=== PATIENT | male | born 1980 | race Caucasian/White ===

== ENCOUNTER 2020-06-10 14:09 | Outpatient (CLI) | payer BC, SELFPAY ==
--- NOTE | 2020-06-10 14:20 | MR_ITS ---
WS: [id number] MRI HEAD WITH CONTRAST WITH ATTENTION TO THE PITUITARY TECHNIQUE: Sagittal T1, T2 axial, T2 axial FLAIR, axial susceptibility weighted imaging, axial diffus ion weighted images, and coronal T2 images were obtained. Pre and post-T1 axial and post T1 coronal i mages. ADC and FSPGR images. High-resolution imaging of the pituitary was obtained. Multiplanar T1-T2 and postgadolinium imaging was obtained. CLINICAL INFORMATION: HYPERPROLACTINEMIA COMPARISON: MRA [id number] FINDINGS: No evidence of restricted diffusion to suggest acute ischemia. Ventricular system and basal cisterns are patent. No suspicious intracranial signal abnormalities. Normal posterior fossa. Normal vascular flow voids at the skull base. No extra axial fluid collections. No evidence of mass or mass effect. M ild mucosal thickening in the ethmoid air cells. Mild mucosal thickening at the mastoid tips. Normal optic chiasm and pituitary infundibulum. Asymmetric hypoenhancing pituitary tissue in the righ t aspect of the sella measuring 8.6 x 7.4 x 5.3 mm. Findings are most consistent with microadenoma. R ecommend correlation with pituitary function studies. Normal-appearing pituitary tissue in the left a spect of the sella.No hemosiderin on the susceptibly weighted images. Normal cavernous sinus and Meck el's cave. MR/MR pituitary wo/w con* [id number] IMPRESSION: 1. Hypoenhancing lesion right aspect of the sella described above most consist ent with microadenoma. Recommend correlation with pituitary function studies. 2. Normal optic chiasm and pituitary infundibulum. 3. No other significant findings.
== END 2020-06-10 14:10 | disposition home or self-care (01) ==
PROVIDERS: PCP Family Medicine
DX: E34.9 Endocrine disorder, unspecified (principal)
CPT/HCPCS: 70553; A9577

== ENCOUNTER → 2022-08-24 14:41 | Outpatient (BNVA) | payer OTHER, SELFPAY | PROVIDERS: PCP Family Medicine; Visit Provider Family Medicine | DX: E34.9 Endocrine disorder, unspecified (principal) | CPT/HCPCS: 80053; 80061; 82533; 82784; 83036; 83516; 84305; 84402; 84403; 84439; 84443; 86376 ==

== ENCOUNTER → 2022-10-28 07:32 | Outpatient (BNVA) | payer OTHER, SELFPAY | PROVIDERS: PCP Family Medicine; Visit Provider Internal Medicine | DX: E34.9 Endocrine disorder, unspecified (principal); D35.2 Benign neoplasm of pituitary gland; E11.9 Type 2 diabetes mellitus without complications | CPT/HCPCS: 36415; 80061; 84403; 84439; 85025; G0103 ==

== ENCOUNTER 2022-11-07 16:43 | Outpatient (CLI) | payer OTHER, SELFPAY ==
[2022-11-07 18:32] LABS: Prolactin 1.19 ng/mL (4.0-15.2)
== END 2022-11-07 16:44 | disposition home or self-care (01) ==
PROVIDERS: PCP Family Medicine; Visit Provider Internal Medicine
DX: D35.2 Benign neoplasm of pituitary gland (principal); E11.9 Type 2 diabetes mellitus without complications; E34.9 Endocrine disorder, unspecified
CPT/HCPCS: 36415; 84146

== ENCOUNTER 2022-11-23 15:15 | Outpatient (CLI) | payer OTHER, SELFPAY ==
--- NOTE | 2022-11-23 16:00 | MR_ITS ---
WS: [id number] MRI HEAD WITHOUT AND WITH CONTRAST WITH ATTENTION TO THE PITUITARY TECHNIQUE: Sagittal T1, T2 axial, T2 axial FLAIR, axial susceptibility weighted imaging, axial diffus ion weighted images, and coronal T2 images were obtained. Pre and post-T1 axial and post T1 coronal i mages. ADC and FSPGR images. High-resolution imaging of the pituitary was obtained. Multiplanar T1, T 2 and postgadolinium imaging was obtained. CLINICAL INFORMATION: HYPERPROLACTINEMIA COMPARISON: MRI June 10, 2020 FINDINGS: Significant improvement with near resolution of the previously described microadenoma in RIGHT aspect of the sella. This is decreased in size today with a small area of residual hypoenhancement somewhat difficult to measure. This is somewhat ill-defined but measures approximately 4 mm.Normal optic jamie sm and pituitary infundibulum. No hemosiderin on the susceptibly weighted images. Normal cavernous sinus and Meckel's cave. No other significant changes compared to previous. No restricted diffusion to suggest acute ischemia. Ventricular system and basal cisterns are patent. No suspicious intracranial signal abnormalities. Normal posterior fossa. Normal vascular flow voids a t the skull base. No extra-axial fluid collections. No evidence of mass or mass effect. Paranasal sin uses and mastoid air cells well aerated. Normal posterior nasopharynx. No hemosiderin on susceptibly weighted images. MR/MR pituitary wo/w con* [id number] IMPRESSION: 1. Significant improvement with near resolution of the previously described mi croadenoma in RIGHT aspect of the sella. This is decreased in size today measur ing approximately 4 mm. 2. Normal optic chiasm and pituitary infundibulum. 3. No other significant interval changes.
[2022-11-23] MEDS: gadobenate dimeglumine 20 mL vial IV (16:33)
== END 2022-11-23 15:16 | disposition home or self-care (01) ==
LOC: RAD 15:17
PROVIDERS: PCP Family Medicine; Visit Provider Internal Medicine
DX: D35.2 Benign neoplasm of pituitary gland (principal)
CPT/HCPCS: 36415; 70553; 80061; 84403; 84439; 85025; A9577; G0103

== ENCOUNTER → 2023-03-07 09:17 | Outpatient (BNVA) | payer OTHER, SELFPAY | PROVIDERS: PCP Family Medicine; Visit Provider Internal Medicine | DX: E11.9 Type 2 diabetes mellitus without complications (principal); E34.9 Endocrine disorder, unspecified; R73.03 Prediabetes; Z79.899 Other long term (current) drug therapy | CPT/HCPCS: 80053; 80061; 82043; 83036; 84146; 84153; 84403; 85025 ==

== ENCOUNTER 2023-05-26 08:50 | Outpatient (CLI) | payer OTHER, SELFPAY ==
[2023-05-26 09:08] LABS: Basophils % 0.5 %; Eosinophils # 0.1 10^3/uL (0.0-0.8); Eosinophils % 2.2 %; Hematocrit 48.8 % (37-53); Lymphocytes # 1.7 10^3/uL (0.8-4.8); Mean Corpuscular HGB Conc 34.8 g/dL (30-55); Mean Corpuscular Hemoglobin 30.4 pg (27-33); Mean Corpuscular Volume 87.3 fl (82-101); Mean Platelet Volume 8.5 fL (7.4-10.4); Monocytes # 0.4 10^3/uL (0.2-0.9); Monocytes % 5.8 %; Neutrophils # 4.24 10^3/uL (1.8-7.7); Neutrophils % 65.2 %; Nucleated Red Blood Cells % 0 %; Platelet Count 339 10^3/cmm (157-399); Red Blood Count 5.59 10^6/uL (3.85-5.65); Red Cell Distribution Width 12.1 % (12.1-15.1)
[2023-05-26 10:11] LABS: Alanine Aminotransferase 51 U/L (0-41); Albumin Level 4.4 g/dL (3.5-5.2); Alkaline Phosphatase 92 U/L (40-130); Anion Gap 13.4 (5-19); Aspartate Amino Transferase 24 U/L (0-40); Blood Urea Nitrogen 16 mg/dL (6-20); Calcium 9.8 mg/dL (8.5-10.5); Carbon Dioxide 30 mmol/L (22-29); Chloride 101 mmol/L (98-107); Chol HDL Ratio 5.47 mg/dL (1.0-5.00); Cholesterol 197 mg/dL (0-200); Free T4 Free Thyroxine 0.94 ng/dL (0.82-1.77); Globulin 3.3 g/dL (1.3-4.6); Glomerular Filtration Rate 72.7 mL/min (90-130); Glucose 94 mg/dL (65-115); HDL Cholesterol 36 mg/dL (60-100); LDL Cholesterol Calculated 132 mg/dL (50-129); LDL HDL Ratio 3.67 RATIO (0.00-3.22); Osmolality Calculated 291 mOsm/kg (285-295); Potassium 4.4 mmol/L (3.5-5.1); Prostate Specific Antigen Scr 0.34 ng/mL (0-4); Sodium 140 mmol/L (136-145); Testosterone Total 581.4 ng/dL (249-836); Thyroid Stimulating Hormone 1.78 uIU/mL (0.27-4.20); Total Bilirubin 0.6 mg/dL (0.15-1.2); Total Protein 7.7 g/dL (6.6-8.7); Triglycerides 144 mg/dL (0-150)
== END 2023-05-26 08:51 | disposition home or self-care (01) ==
LOC: LAB 08:50
PROVIDERS: PCP Family Medicine; Visit Provider Internal Medicine
DX: E11.9 Type 2 diabetes mellitus without complications (principal); E34.9 Endocrine disorder, unspecified; D35.2 Benign neoplasm of pituitary gland
CPT/HCPCS: 80053; 80061; 84146; 84403; 84439; 84443; 85025; G0103